=== PATIENT | female | born 1980 | race Caucasian/White ===

== ENCOUNTER 2021-03-26 13:10 | Emergency (ER) | payer OTHER ==
[~2021-03-26] VITALS: Ht 160 cm; Wt 95.3 kg
[2021-03-26] MEDS ORDERED: HYDROXYZINE HCL25 M2 PO (13:23)
[2021-03-26] MEDS ORDERED: IRON18 M1 PO (13:23)
[2021-03-26] MEDS ORDERED: BIRTH CONTROL (13:24)
[2021-03-26 13:55] LABS: ABSOLUTE EOSINOPHILS 0.1 thou/uL (0.0-0.7); ABSOLUTE MONOCYTES 0.3 thou/uL (0.0-1.2); ABSOLUTE NEUTROPHILS 5.6 thou/uL (1.6-8.1); BASOPHILS 0.5 %; HEMATOCRIT 41.4 % (37.0-47.0); HEMOGLOBIN 14.7 gm/dL (12.0-15.0); LYMPHOCYTES 25.1 %; MCH 31.8 pg (26.0-34.0); MCHC 35.5 g/dL (28.0-37.0); MCV 89.6 fL (80.0-100.0); MONOCYTES 3.5 %; MPV 6.5 fl. (7.2-11.1); NUCLEATED RBCS 0 /100WBC; PLATELET COUNT* 329 thou/uL (150-400); POLYS 69.9 %; RBC 4.61 mil/uL (4.20-5.00); RDW-CV 13.5 % (10.5-14.5)
[2021-03-26 14:06] LABS: CALCIUM 9.1 mg/dL (8.5-10.1); CREATININE 0.7 mg/dL (0.6-1.3); POTASSIUM 3.7 mmol/L (3.5-5.1)
[2021-03-26 14:11] LABS: ALBUMIN 3.9 g/dL (3.4-5.0); TOTAL BILIRUBIN 0.3 mg/dL (<0.1-1.0); TOTAL PROTEIN 7.8 g/dL (6.4-8.2)
[2021-03-26 14:53] LABS: URINE BILIRUBIN NEGATIVE (Negative); URINE BLOOD NEGATIVE (Negative); URINE CLARITY CLEAR; URINE COLOR YELLOW; URINE GLUCOSE-RANDOM NEGATIVE (Negative); URINE KETONES TRACE (Negative); URINE LEUKOCYTES-REFLEX TRACE (Negative); URINE NITRITE-REFLEX NEGATIVE (Negative); URINE PROTEIN NEGATIVE (Negative); URINE SPECIFIC GRAVITY <= 1.005 (1.005-1.030); URINE UROBILINOGEN 0.2 E.U./dl (0.2-1.0)
[2021-03-26 15:06] LABS: SQUAMOUS >10 Many /LPF (0-3)
[2021-03-26 15:07] LABS: BACTERIA-REFLEX 1-9 Few /HPF (None Seen); CASTS None Seen /LPF (None Seen); CRYSTALS None Seen /LPF (None Seen); URINE RBC None Seen /HPF (0-2); URINE WBC-REFLEX 0-5 Rare /HPF (0-5)
[2021-03-26 15:32] VITALS: BP 134/96
--- NOTE | 2021-03-28 16:38 | EKG ---
[place] [address] ELECTROCARDIOGRAM REPORT Name: TONIA CROUCH Room: [facility]#: [id number] Admission: 03/26/21 Attend Phys: Discharge: 03/26/21 Date of : 78 Date of Service: 03/26/21 1330 Report #: [id number] THIS REPORT FOR: //name// [facility] ED Test Date: 2021-03-26 Test Time: 13:30:55 Pat Name: TONIA CROUCH Department: Room: Gender: Solar Manager: [facility] : 1980 Requested By: Beatrice Dickey Order Number: [id number] MD: Paul Smith Measurements Intervals [place] Rate: 75 P: 56 [place]: 145 QRS: -14 QRSD: 103 T: 29 QT: 405 QTc: 453 Interpretive Statements Sinus rhythm Multiple ventricular premature complexes No previous ECG available for comparison Electronically Signed On 03-28-2021 16:38:11 CDT by Paul Smith [email or web address] <ELECTRONICALLY SIGNED> By: Paul Smith MD, [facility] 03/28/21 1638 1330 1330 Paul Smith MD, FACC /EPI
== END 2021-03-26 15:33 | disposition home or self-care (01) ==
LOC: M.ERS 13:10
PROVIDERS: Physician Assistant
DX: R00.2 Palpitations (principal); R53.1 Weakness; Z88.1 Allergy status to other antibiotic agents; Z91.040 Latex allergy status; Z91.018 Allergy to other foods; Z98.890 Other specified postprocedural states; Z98.51 Tubal ligation status; Z86.14 Personal history of Methicillin resistant Staphylococcus aureus infection; Z86.2 Personal history of diseases of the blood and blood-forming organs and certain disorders involving the immune mechanism